=== PATIENT | female | born 1970 | race Hispanic/Latino ===

== ENCOUNTER 2018-03-02 22:55 | Emergency (ER) | payer MEDICARE ==
[2018-03-02 23:00] VITALS: BMI 29.5
--- NOTE | 2018-03-02 23:58 | ED PDOC ---
HPI: General Adult Time Seen by Provider: 03/02/18 23:21 Chief Complaint (Nursing): Anxiety Chief Complaint (Provider): panic attack History Per: Patient (47 y/o female h/o Anxiety on Seroquel here for evaluation of panic attack that occurred today. Patient states she feels fearful and nervous. Denies any SI/HI. Denies any chest pain/sob. FOllows outpatient with Dr. Melgar last seen 2 weeks ago.) Past Medical History Reviewed: Historical Data, Nursing Documentation, Vital Signs Vital Signs: Last Vital Signs Temp 98 F 03/03/18 02:22 Pulse 88 03/03/18 02:22 Resp 16 03/03/18 02:22 BP 126/97 H 03/03/18 02:22 Pulse Ox 98 03/03/18 02:22 - Family History Family History: States: No Known Family Hx - Allergies Allergies/Adverse Reactions: Allergies Allergy/AdvReac Type Severity Reaction Status Date / Time No Known Allergies Allergy Verified 03/02/18 23:00 Review of Systems ROS Statement: Except As Marked, All Systems Reviewed And Found Negative Physical Exam - Reviewed Nursing Documentation Reviewed: Yes Vital Signs Reviewed: Yes - Physical Exam Appears: Positive for: Well, Non-toxic, No Acute Distress Head Exam: Positive for: ATRAUMATIC, NORMAL INSPECTION, NORMOCEPHALIC Skin: Positive for: Normal Color, Warm, DRY Eye Exam: Positive for: EOMI, Normal appearance, PERRL ENT: Positive for: Normal ENT Inspection Neck: Positive for: Normal, Painless ROM Cardiovascular/Chest: Positive for: Regular Rate, Rhythm Respiratory: Positive for: CNT, Normal Breath Sounds Gastrointestinal/Abdominal: Positive for: Normal Exam, Soft Back: Positive for: Normal Inspection Extremity: Positive for: Normal ROM Neurologic/Psych: Positive for: Alert, Oriented - ECG O2 Sat by Pulse Oximetry: 95 - Progress ED Course And Treament: EKG NSR 81 bpm; no ectopy; no acute changes Xanax 0.5mg x 1 dose without relief. Ativan 0.5 mg IM x 1 dose Disposition - Clinical Impression Clinical Impression: Panic attack - Patient ED Disposition Is Patient to be Admitted: No - Disposition Disposition: Routine/Home Disposition Time: 01:23 Condition: FAIR Instructions: Panic Disorder (DC)
[2018-03-03 02:23] VITALS: BP 126/97; PULSE 88; RESP 16; TEMP 98
--- NOTE | 2018-03-03 11:53 | CARD ---
APPROVED REPORT Date of service: 03/03/2018 EKG Measurement Heart [id number] <Conclusion> Normal sinus rhythm Incomplete right bundle branch block Abnormal ECG
[2018-03-03 21:52] VITALS: O2SAT 95
== END 2018-03-03 02:23 | disposition home or self-care (01) ==
LOC: H.ER 22:55
DX: F41.0 Panic disorder [episodic paroxysmal anxiety] (principal)
CPT/HCPCS: 93005; 96372; J2060